=== PATIENT | male | born 1970 ===

== ENCOUNTER 2025-08-18 06:14 | Day surgery (SDC) | payer OTHER, SELFPAY ==
[2025-08-11 10:25] VITALS: BMI 32.4
[2025-08-11 11:35] LABS: Hematocrit 43.7 % (39.0-52.0); Hemoglobin 14.6 g/dL (13.0-18.0); Mean Corp Hgb Conc. 33.4 g/dL (33.0-37.0); Mean Corpuscular Volume 87.9 fL (80.0-94.0); Platelet Count 267 10^3/uL (130-400); Red Cell Dist. Width 12.8 % (11.5-14.5)
[2025-08-11 12:04] LABS: Blood Urea Nitrogen 24 mg/dl (9-20); Calcium 9.4 mg/dl (8.4-10.2); Carbon Dioxide 28 mmol/L (22-30); Chloride 103 mmol/L (98-107); Estimated Creatinine Clearance > 125 ml/min; Glucose 90 mg/dl (70-99); Potassium 4.3 mmol/L (3.5-5.1); Sodium 138 mmol/L (135-145); eGFR > 60.00
[2025-08-18] VITALS (9 sets, daily range): BP systolic 107–150; BP diastolic 64–93; BMI 32.4
[2025-08-18] MEDS: CELEBREX 200 MG PO (07:32)
[2025-08-18] MEDS: TYLENOL 1000 MG PO (07:32)
[2025-08-18 08:01] LABS: Glucose - Point of Care 99 mg/dl (70-99)
[2025-08-18] MEDS: NORMOSOL-R/PLASMALYTE-A 1000 IV (08:04)
[2025-08-18] MEDS: ZOFRAN 4 MG IV (10:46)
[2025-08-18 10:57] LABS: Glucose - Point of Care 114 mg/dl (70-99)
== END 2025-08-18 13:11 | disposition home or self-care (01) ==
LOC: SDS 06:14
PROVIDERS: ATTENDING PHYSICIAN Orthopaedic Surgery; FAMILY PHYSICIAN Student in an Organized Health Care Education/Training Program
DX: S46.211A Strain of muscle, fascia and tendon of other parts of biceps, right arm, initial encounter (principal); X58.XXXA Exposure to other specified factors, initial encounter
CPT/HCPCS: 29827; 29828; 29826; 36415; 80048; 82962; 85027; 93005